=== PATIENT | male | born 1990 | race African-American/Black ===

== ENCOUNTER 2018-12-25 21:37 | Emergency (ER) | payer OTHER ==
[~2018-12-25] VITALS: Ht 162.6 cm; Wt 89.4 kg
[~2018-12-25 21:37] MED LIST: ADDERALL 15 MG15 MG PO; AMBIEN 5 MG TABL5 M1 PO; BRINTELLIX20 MG PO; CELEBREX 200 M200 M1 PO; CLARITIN10 MG PO; CLONIDINE0.1 PO; FLEXERIL PO; IBUPROFEN 600600 M1 PO; IBUPROFEN 800800 M1; LIDODERM 5%1 PATC1 TOP; NEURONTIN 300300 M1 PO; NEXIUM40 MG PO; NORCO 5-325 TA1 EACH PO; ONDANSETRON HCL4 M2 PO; PENICILLIN V P500 MG PO; PHENERGAN 25 MG25 M1 PO; PRILOSEC40 MG PO; RANITIDINE 150150 M1 PO; TRAMADOL 50 MG50 MG
[2018-12-25] MEDS ORDERED: IBUPROFEN 400400 M2 PO (23:50)
[2018-12-25] MEDS ORDERED: FLEXERIL PO (23:50)
[2018-12-26 00:07] VITALS: BP 136/87
== END 2018-12-26 00:08 | disposition home or self-care (01) ==
LOC: ER 21:37
DX: S46.091A Other injury of muscle(s) and tendon(s) of the rotator cuff of right shoulder, initial encounter (principal); J45.909 Unspecified asthma, uncomplicated; K21.9 Gastro-esophageal reflux disease without esophagitis; F41.9 Anxiety disorder, unspecified; F90.9 Attention-deficit hyperactivity disorder, unspecified type; F17.210 Nicotine dependence, cigarettes, uncomplicated; Z91.040 Latex allergy status; V43.52XA Car driver injured in collision with other type car in traffic accident, initial encounter; Y93.89 Activity, other specified; Y92.89 Other specified places as the place of occurrence of the external cause; Y99.8 Other external cause status